=== PATIENT | female | born 1955 | race Caucasian/White ===

== ENCOUNTER 2021-09-24 12:29 | Inpatient (IN) | payer MEDICARE ==
[2021-09-24] VITALS (38 sets, daily range): BP systolic 74–136; BP diastolic 34–70
[~2021-09-24] VITALS: Ht 152.4 cm; Wt 73.0 kg
[2021-09-24] MEDS ORDERED: 0.9%NACL 1000ML 1,000 ML IV ONE (13:30)
[2021-09-24 14:05] LABS: BASOPHILS % (AUTO) 0.3 % (0.0-5.0); EOSINOPHILS % (AUTO) 0.2 % (0.0-8.0); HEMATOCRIT 36.4 % (36-48); LYMPHOCYTES % (AUTO) 5.6 % (21.0-51.0); MEAN CORPUSCULAR HEMOGLOBIN 27.8 pg (27.0-33.0); MEAN CORPUSCULAR HGB CONC 33.8 g/dL (32.0-36.0); MEAN CORPUSCULAR VOLUME 82.4 fL (79-99); MONOCYTES % (AUTO) 5.4 % (3.0-13.0); NEUTROPHILS % (AUTO) 87.7 % (40.0-77.0); PLATELET COUNT (AUTO) 112 K/uL (130-400); RED BLOOD CELL COUNT(AUTO) 4.42 MIL/uL (4.00-5.50); RED CELL DISTRIBUTION WIDTH 12.7 % (11.0-15.5); WHITE BLOOD COUNT (AUTO) 6.4 K/uL (4.8-10.8)
[2021-09-24 14:28] LABS: B-TYPE NATRIURETIC PEPTIDE 361 pg/mL (0-100)
[2021-09-24 14:41] LABS: ALBUMIN 2.3 g/dL (3.5-5.0); BILIRUBIN,TOTAL 0.6 mg/dL (0.2-1.0); CREATININE 1.3 mg/dL (0.5-1.5); POTASSIUM 3.9 mmol/L (3.5-5.1); THYROID STIMULATING HORMONE 1.46 uIU/mL (0.36-3.74); TOTAL PROTEIN, SERUM 6.3 g/dL (6.0-8.3)
[2021-09-24] MEDS ORDERED: SODIUM CHLORIDE 3% FOR INHALATION 4 ML/AMP VIAL.NEB IH ONE (15:57)
[2021-09-24] MEDS ORDERED: ONDANSETRON 4MG INJ IVP PRN (16:00)
[2021-09-24] MEDS: CEFTRIAXONE 2GM VIAL IVP SCH (16:07)
[2021-09-24] MEDS: DOXYCYCLINE 100MG+NS 250ML IV SCH (16:07)
[2021-09-24] MEDS ORDERED: NOREPINEPHRIN 4MG/NS 250ML 250 ML IV SCH (16:30)
[2021-09-24] MEDS ORDERED: KETOROLAC 15MG/ML VIAL (15MG/ML) IV ONE (17:00)
[2021-09-24] MEDS ORDERED: 0.9%NACL 1000ML 1,000 ML IV SCH (17:30)
[2021-09-24] MEDS ORDERED: METOPROLOL TARTRATE 1 MG/ML 5ML VIAL IV ONE ×3 (18:32→19:00)
[2021-09-24 18:38] LABS: APPEARANCE,URINE CLOUDY (CLEAR); BILIRUBIN,URINE NEGATIVE (NEGATIVE); COLOR,URINE YELLOW (YELLOW); GLUCOSE, URINE (UA) NEGATIVE (NEGATIVE); KETONES,URINE 5 mg/dL (NEGATIVE); LEUKOCYTE ESTERASE ,URINE LARGE (NEGATIVE); NITRATE,URINE NEGATIVE (NEGATIVE); OCCULT BLOOD,URINE SMALL (NEGATIVE); PH,URINE 5.5 (5.0-8.0); PROTEIN,URINE TRACE mg/dL (NEGATIVE); UROBILINOGEN,URINE 0.2 mg/dL (0.2-1.0)
[2021-09-24 18:47] LABS: BACTERIA,URINE Few /HPF (None Seen); SQUAMOUS EPITHELIAL CELL,UR Rare /HPF (0-2); TRANSITIONAL EPI CELLS,URINE Few /HPF (None Seen)
[2021-09-24] MEDS ORDERED: PHENYLEPHRINE HCL IV PRN (19:00)
[2021-09-24] MEDS ORDERED: NACL 0.9% IV PRN (19:00)
[2021-09-24] MEDS ORDERED: MAGNESIUM 2GM PREMIX 50ML 50 ML IV SCH (20:00)
[2021-09-25] VITALS (33 sets, daily range): BP systolic 97–136; BP diastolic 43–79
[2021-09-25] MEDS: DOXYCYCLINE 100MG+NS 250ML IV SCH ×2 (02:19→14:21)
[2021-09-25 03:44] LABS: BASOPHILS % (AUTO) 0.4 % (0.0-5.0); EOSINOPHILS % (AUTO) 0.2 % (0.0-8.0); HEMATOCRIT 29.8 % (36-48); MEAN CORPUSCULAR HEMOGLOBIN 26.8 pg (27.0-33.0); MEAN CORPUSCULAR HGB CONC 33.2 g/dL (32.0-36.0); MEAN CORPUSCULAR VOLUME 80.8 fL (79-99); MONOCYTES % (AUTO) 6.4 % (3.0-13.0); NEUTROPHILS % (AUTO) 86.2 % (40.0-77.0); PLATELET COUNT (AUTO) 96 K/uL (130-400); RED BLOOD CELL COUNT(AUTO) 3.69 MIL/uL (4.00-5.50); RED CELL DISTRIBUTION WIDTH 12.7 % (11.0-15.5); WHITE BLOOD COUNT (AUTO) 5.1 K/uL (4.8-10.8)
[2021-09-25 04:05] LABS: B-TYPE NATRIURETIC PEPTIDE 319 pg/mL (0-100)
[2021-09-25] MEDS: ACETAMINOPHEN 325 MG TAB PO PRN ×2 (04:05→11:40)
[2021-09-25 04:08] LABS: ALBUMIN 1.8 g/dL (3.5-5.0); BILIRUBIN,TOTAL 0.4 mg/dL (0.2-1.0); CRP QUANTITATIVE 252.2 mg/L (0.00-9.0); MAGNESIUM 2.2 mg/dL (1.80-2.40); PHOSPHORUS 2.1 mg/dL (2.5-4.9); POTASSIUM 3.6 mmol/L (3.5-5.1); TOTAL PROTEIN, SERUM 5.1 g/dL (6.0-8.3)
[2021-09-25] MEDS: 0.9%NACL 1000ML 1,000 ML IV SCH (06:27)
[2021-09-25] MEDS ORDERED: SODIUM CHLORIDE 3% FOR INHALATION 4 ML/AMP VIAL.NEB IH ONE (06:38)
[2021-09-25] MEDS ORDERED: POTASSIUM CHLORIDE 20MEQ/100ML 100 ML IV PRN (09:00)
[2021-09-25] MEDS ORDERED: LIDOCAINE HCL-MPF 1% 2ML VIAL IV PRN (09:00)
[2021-09-25] MEDS ORDERED: POTASSIUM CHLORIDE 10% ELIXIR 20 MEQ/15 ML UDCUP PO PRN (09:00)
[2021-09-25] MEDS ORDERED: METO100T14 PO (09:10)
[2021-09-25] MEDS ORDERED: OMEP20CA12 PO (09:10)
[2021-09-25] MEDS ORDERED: LEVO100C4 PO (09:18)
[2021-09-25] MEDS ORDERED: PANTOPRAZOLE 40 MG TAB DR PO SCH (09:30)
[2021-09-25] MEDS ORDERED: THIAMINE HCL 100 MG/ML 2ML VIAL IVP SCH (09:30)
[2021-09-25] MEDS ORDERED: LEVOTHYROXINE 100 MCG TABLET PO SCH (09:46)
[2021-09-25] MEDS ORDERED: METOPROLOL TARTRATE 25 MG TAB ONE (10:27)
[2021-09-25] MEDS: KCL 20 MEQ ERTAB PO PRN ×2 (10:28→13:07)
[2021-09-25] MEDS: METOPROLOL TARTRATE 25 MG TAB PO SCH ×2 (10:30→20:52)
[2021-09-25] MEDS: CEFTRIAXONE 2GM VIAL IVP SCH (13:07)
[2021-09-26 00:18] VITALS: BP 110/65
[2021-09-26] MEDS: ACETAMINOPHEN 325 MG TAB PO PRN (00:46)
[2021-09-26 03:21] VITALS: BP 100/62
[2021-09-26] MEDS: DOXYCYCLINE 100MG+NS 250ML IV SCH ×2 (03:22→14:00)
[2021-09-26 04:10] LABS: BASOPHILS % (AUTO) 0.3 % (0.0-5.0); EOSINOPHILS % (AUTO) 0.4 % (0.0-8.0); HEMATOCRIT 30.3 % (36-48); LYMPHOCYTES % (AUTO) 5.6 % (21.0-51.0); MEAN CORPUSCULAR HEMOGLOBIN 27.4 pg (27.0-33.0); MEAN CORPUSCULAR HGB CONC 33.7 g/dL (32.0-36.0); MEAN CORPUSCULAR VOLUME 81.5 fL (79-99); MONOCYTES % (AUTO) 4.8 % (3.0-13.0); NEUTROPHILS % (AUTO) 87.4 % (40.0-77.0); PLATELET COUNT (AUTO) 145 K/uL (130-400); RED BLOOD CELL COUNT(AUTO) 3.72 MIL/uL (4.00-5.50); RED CELL DISTRIBUTION WIDTH 13.2 % (11.0-15.5); WHITE BLOOD COUNT (AUTO) 7.9 K/uL (4.8-10.8)
[2021-09-26 04:39] LABS: ALBUMIN 1.6 g/dL (3.5-5.0); BILIRUBIN,TOTAL 0.4 mg/dL (0.2-1.0); CREATININE 0.8 mg/dL (0.5-1.5); POTASSIUM 3.9 mmol/L (3.5-5.1); TOTAL PROTEIN, SERUM 4.9 g/dL (6.0-8.3)
[2021-09-26] MEDS: LEVOTHYROXINE 100 MCG TABLET PO SCH (06:08)
[2021-09-26] MEDS: 0.9%NACL 1000ML 1,000 ML IV SCH ×2 (06:09→22:30)
[2021-09-26 07:00] VITALS: BP 102/72
[2021-09-26] MEDS: PANTOPRAZOLE 40 MG TAB DR PO SCH (08:51)
[2021-09-26] MEDS: METOPROLOL TARTRATE 25 MG TAB PO SCH ×2 (08:51→21:04)
[2021-09-26 11:00] VITALS: BP 106/72
[2021-09-26] MEDS ORDERED: LEVO500T90 PO (11:58)
[2021-09-26] MEDS: CEFTRIAXONE 2GM VIAL IVP SCH (14:00)
[2021-09-26 15:00] VITALS: BP 120/75
[2021-09-26 20:07] VITALS: BP 113/63
[2021-09-27 00:08] VITALS: BP 116/73
[2021-09-27] MEDS: 0.9%NACL 1000ML 1,000 ML IV SCH (01:34)
[2021-09-27] MEDS: DOXYCYCLINE 100MG+NS 250ML IV SCH (03:27)
[2021-09-27 03:59] LABS: CREATININE 0.7 mg/dL (0.5-1.5); POTASSIUM 3.4 mmol/L (3.5-5.1)
[2021-09-27 04:00] VITALS: BP 118/80
[2021-09-27 04:00] LABS: HEMATOCRIT 33.1 % (36-48); MEAN CORPUSCULAR HEMOGLOBIN 26.6 pg (27.0-33.0); MEAN CORPUSCULAR HGB CONC 32.9 g/dL (32.0-36.0); MEAN CORPUSCULAR VOLUME 80.7 fL (79-99); RED BLOOD CELL COUNT(AUTO) 4.1 MIL/uL (4.00-5.50); RED CELL DISTRIBUTION WIDTH 13.5 % (11.0-15.5); WHITE BLOOD COUNT (AUTO) 9.8 K/uL (4.8-10.8)
[2021-09-27] MEDS: LEVOTHYROXINE 100 MCG TABLET PO SCH (06:08)
[2021-09-27 08:00] VITALS: BP 121/85
[2021-09-27] MEDS: METOPROLOL TARTRATE 25 MG TAB PO SCH (08:51)
[2021-09-27] MEDS: PANTOPRAZOLE 40 MG TAB DR PO SCH (08:51)
== END 2021-09-27 11:28 | disposition home or self-care (01) | DRG 871 ==
LOC: 2CH 13:34 → 2DH 09-25 17:54 → 2CH 09-25 18:00 → 2DH 09-25 23:01
PROVIDERS: ADMIT Internal Medicine; ATTEND Internal Medicine
DX: A41.50 Gram-negative sepsis, unspecified (principal); I21.A1 Myocardial infarction type 2; R65.21 Severe sepsis with septic shock; J18.9 Pneumonia, unspecified organism; I47.1 Supraventricular tachycardia; E87.1 Hypo-osmolality and hyponatremia; J98.11 Atelectasis; N39.0 Urinary tract infection, site not specified; E44.0 Moderate protein-calorie malnutrition; I10 Essential (primary) hypertension; D69.6 Thrombocytopenia, unspecified; E03.9 Hypothyroidism, unspecified; E87.6 Hypokalemia; E83.42 Hypomagnesemia; F32.A Depression, unspecified; D72.810 Lymphocytopenia; D64.9 Anemia, unspecified; E86.9 Volume depletion, unspecified; Z79.899 Other long term (current) drug therapy; Z68.31 Body mass index [BMI] 31.0-31.9, adult
CPT/HCPCS: 36415; 71045; 76705; 80048; 80053; 81001; 81025; 82550; 82607; 82746; 83605; 83735; 83880; 84100; 84145; 84439; 84443; 84484; 85025; 85027; 85651; 86140; 86738; 87040; 87088; 87449; 87507; 87804; 87880; 93005; 93308; 93356; 93970; 94640; 97039; G0378; J0696; J1885; J2405; J3411; J3475; J3490; J7030